=== PATIENT | female | born 1985 | race Two or more races ===

== ENCOUNTER 2024-06-06 14:31 | Emergency (ER) | payer MEDICAID, SELFPAY ==
[2024-06-06 14:33] VITALS: BMI 23.0
[2024-06-06 15:04] VITALS: BP 135/85; PULSE 71; RESP 16; TEMP 36.9; O2SAT 99
--- NOTE | 2024-06-06 15:08 | XR_ITS ---
Examination: CT brain head without contrast. 2-D sagittal coronal reconstructions Date and time of exam:June 06, 2024 1608 hours INDICATIONS: Onset headaches dizziness today CTDI: vol (mGy):47.1 DLP: (mGycm):897 Technique: Multiple CT axial sections of the brain have been obtained, 5 mm slice thickness. Contrast has not been administered. 2-D sagittal, coronal reconstructions have been obtained Low dose protocols were performed. One or more of the following dose reduction techniques were used; automated exposure control, adjustment of the mA and/or KV according to patient size, use of iterative reconstruction technique. Findings: No significant ventricular enlargement. Intra-axial or extra-axial hemorrhage density is not seen. No mass effect or midline shift Basal cisterns are not remarkable. Fourth ventricle is midline. Cranial vault intact. Impression: Negative for acute hemorrhage, mass effect or midline shift Advise clinical correlation follow-up accordingly
--- NOTE | 2024-06-06 15:09 | EDNOTE_ITS ---
<Statement entered by Sudha Nixon MD - 06/07/24 07:25> As co-signing physician, I was present and available for consult prn. I concur with the plan and care as documented by the midlevel provider. ED Headache RME/HPI General Chief Complaint: Headache Stated Complaint: FACIAL PAIN/HEADACHE FOR 3 DAYS Time Seen by Provider: 06/06/24 15:08 Source: patient Arrival date/time: 06/06/24 14:31 38-year-old female with no known medical history presents to the emergency room with a chief complaint of a headache x 3 days. Mode of arrival: ambulatory Limitations: no limitations Related Data Home Medications ?Medication ?Instructions ?Recorded ?Confirmed escitalopram oxalate 10 mg tablet 10 mg PO QDAY 12/14/18 topiramate 50 mg capsule,extended 50 mg PO QDAY 12/14/18 release 24 hr trazodone 150 mg tablet 150 mg PO QDAY 10/04/1811/24 Previous Rx's ?Medication ?Instructions ?Recorded lansoprazole 30 mg capsule,delayed 30 mg PO QDAY #14 c aps 12/14/18 release (Prevacid) cephalexin 500 mg tablet 500 mg PO TID #21 tabs 04/15 clindamycin HCl 300 mg capsule 300 mg PO TID 7 days #2 1 caps 06/06/24 Allergies Allergy/AdvReac Type Severity Reaction Status Date / Time No Known Allergies Allergy Verified 06/06/24 14:32 Review of Systems Review of Systems Systems Reviewed: All systems reviewed, normal except as documented Constitutional Constitutional: Reports system reviewed and no additional complaints, except as documented, Denies fatigue, Denies fever(s), Reports headache(s) and Denies weakness Eyes Eyes: Reports system reviewed and no additional complaints, except as documented, Denies blurry vision and Denies change in vision ENT Ears, Nose, Mouth, and Throat: Reports system reviewed and no additional complaints, except as documented, Reports dental pain, Denies otalgia, Reports headache(s), Denies nasal congestion, Denies throat swelling and Denies vertigo Cardiovascular Cardiovascular: Reports system reviewed and no additional complaints, except as documented, Denies chest pain, Denies dyspnea and Denies dyspnea on exertion Respiratory Respiratory: Reports system reviewed and no additional complaints, except as documented, Denies chest congestion, Denies cough, Denies dyspnea, Denies dyspnea on exertion and Denies wheezing Gastrointestinal Gastrointestinal: Reports system reviewed and no additional complaints, except as documented, Denies abdominal pain, Denies cramping, Denies nausea and Denies vomiting Genitourinary Genitourinary: Reports system reviewed and no additional complaints, except as documented Musculoskeletal Musculoskeletal: Reports system reviewed and no additional complaints, except as documented and Denies back pain Integumentary/Breasts Skin/Breast: Reports system reviewed and no additional complaints, except as documented and Denies wounds Neurologic Neurologic: Reports system reviewed and no additional complaints, except as documented, Denies confusion, Reports headache(s), Denies lack of coordination, Denies vertigo and Denies weakness Psychiatric Psychiatric: Reports system reviewed and no additional complaints, except as documented, Denies anxiety, Denies confusion, Denies depression, Denies paranoia, Denies suicidal ideation and Denies tactile hallucinations Endocrine Endocrine: Reports system reviewed and no additional complaints, except as documented and Denies fatigue Hematologic/Lymphatic Hematologic/Lymphatic: Reports system reviewed and no additional complaints, except as documented and Denies lymphadenopathy Allergic/Immunologic Allergic/Immunologic: Reports system reviewed and no additional complaints, except as documented, Denies throat swelling, Denies urticaria and Denies wheezing Past Medical History Past Medical History CARDIAC: Negative Congestive Heart Failure RESPIRATORY: Negative Chronic Obstructive Pulmonary Disease (COPD) GENITOURINARY: Negative Renal Disease ENDOCRINE: Negative Diabetes Mellitus Type 1 or Diabetes Mellitus Type 2 Social History SMOKING STATUS: Never smoker ED Exam General Limitations: Present no limitations General appearance: Present alert and in no apparent distress Head Head exam: Present atraumatic Eye Eye exam: Present normal appearance, PERRL and EOMI ENT ENT exam: Present normal exam, normal oropharynx and mucous membranes moist Expanded ENT Exam Teeth exam: Present dental caries and dental tenderness #; Absent fractured tooth # or gingival swelling Teeth numbered: 2 1. Dental Tenderness Throat exam: Present normal inspection Neck Neck exam: Present normal inspection, full ROM and trachea midline Chest Chest inspection: Present normal inspection and symmetric chest wall rise Respiratory Respiratory exam: Present normal lung sounds bilaterally Cardiovascular Cardiovascular exam: Present regular rate, normal rhythm and normal heart sounds Abdominal Exam Abdominal exam: Present soft and normal bowel sounds Extremities Exam Extremities exam: Present normal inspection and full ROM Back Exam Back exam: Present normal inspection and full ROM Neurological Exam Neurological exam: Present alert, oriented X3 and CN II-XII intact Psychiatric Psychiatric exam: Present normal affect and normal mood Skin Skin exam: Present warm, dry, intact and normal color Course Quality Measures none Orders Category Date Time Status CT head/brain wo con Stat Exams 06/06/24 15:08 Completed Ketorolac Inj [Toradol Inj] Med 06/06/24 16:45 Discontinued 30 mg IM X1 ONE Vital Signs Vital signs: Vital Signs Temperature 98.4 F 06/06/24 15:04 Pulse Rate 71 06/06/24 15:04 Respiratory Rate 16 06/06/24 15:04 Blood Pressure 135/85 H 06/06/24 15:04 Pulse Oximetry (%) 99 06/06/24 15:04 Oxygen Delivery Method Room Air 06/06/24 15:04 O2 saturation 99% within normal limits Headache MDM Narrative MDM Narrative:: 38-year-old female with no known medical history presents to the emergency room with a chief complaint of a headache x 3 days. Patient is hemodynamically stable and in no apparent distress Patient states she has a 10 out of 10 headache that has been going on for 3 days but progressively gotten worse today. She denies a headache to the right side of her head and states that it is throbbing and is not relieved with medication. Patient is also complaining of right sided upper dental tenderness. Patient states she has been to her dentist multiple times as she believes this is the root of her headache. CT of the head and brain was completed and was negative for any acute hemorrhage mass effect or midline shift. Patient was discharged and educated to follow-up with primary care provider and return to the emergency room for any evidence of worsening signs or symptoms. Patient data External records reviewed:: [facility] previous records Clinical information provided by:: patient Social determinants that could affect healthcare access:: none Patient has the following chronic illnesses:: No chronic illness How is presenting disease/condition affected by chronic disease/condition?: no chronic disease Evaluation data The following diagnostics were reviewed and interpreted by me:: lab results and radiology exam(s) Lab and/or radiology exams considered but not ordered:: Labs and radiology exams considered and ordered Interpretation Summary: N/A Medications / Prescriptions Medications or Prescriptions considered but not ordered:: Medication given Medication administrations:: Medication Administration History Discontinued Medications Ketorolac Tromethamine (Ketorolac Inj 60 Mg/2 Ml Vial) 30 mg IM X1 ONE Stop: 06/06/24 16:46 Last Admin: 06/06/24 17:18 Dose: 30 mg Documented By: Medication given Consultations Consultation(s) initiated? (list below): No Diagnosis Differential diagnosis headache: migraine, tension headache, subarachnoid hemorrhage, headache and other (Dental pain) Most likely diagnosis given after review of the tests above:: Dental pain Admission Indicated Admission indicated?: not indicated Admission Request Was there a request for admission?: No Disposition Plan Disposition Plan: Discharge Discharge Attestation Discharge Attestation: The patient and all family members were given an opportunity to ask questions and understood the discharge instructions. Discharge instructions specifically effects, indications for sooner follow up or return to the emergency department, and the expected course of current diagnosis. Patient condition: Stable Discharge Plan Plan Patient Disposition: HOME (Self Care) Disposition Comment: Stable Prescriptions/Referrals Prescriptions/Med Rec: New clindamycin HCl 300 mg capsule 300 mg PO TID 7 Days Qty: 21 0RF No Action trazodone 150 mg Tablet 150 mg PO QDAY escitalopram oxalate 10 mg Tablet 10 mg PO QDAY topiramate 50 mg Capsule,Extended Release 24hr 50 mg PO QDAY lansoprazole [Prevacid] 30 mg capsule,delayed release(DR/EC) 30 mg PO QDAY Qty: 14 0RF cephalexin 500 mg tablet 500 mg PO TID Qty: 21 0RF Referrals: No Primary/Family,Physician [Primary Care Provider] - In 1 week Problem List Clinical Impression: Headache, Pain, dental Patient/Caregiver Discharge Instructions Education Materials: Self-Care for Headaches, ED Dental Pain Additional Instructions: Por favor, consulte con jane m?dico de cabecera en las pr?ximas 24 a 48 horas. Los antibi?ticos se env?an a jane farmacia, rec?jalos y t?melos seg?n lo indicado. Si hay evidencia de empeoramiento de los signos o s?ntomas, regrese a la carolann de emergencias de inmediato. Print Language: Irish Stand Alone Forms: Ramona Award Info., Patient Portal Info Letter PA/ETHNOGRAPHER Supervising Physician PA/ETHNOGRAPHER Supervising Physician: Dr. NIXON
[2024-06-06] MEDS: KETOROLAC INJ 60 MG/2 ML VIAL 30 MG IM (17:18)
== END 2024-06-06 18:19 | disposition home or self-care (01) ==
PROVIDERS: Emergency Provider Emergency Medicine
DX: R51.9 Headache, unspecified (principal); K08.89 Other specified disorders of teeth and supporting structures
CPT/HCPCS: 70450; 96372; 99284; J1885

== ENCOUNTER 2024-11-04 05:39 | Emergency (ER) | payer MEDICAID, SELFPAY ==
[2024-11-04 05:46] VITALS: BP 130/73; PULSE 66; RESP 16; TEMP 36.7; O2SAT 100
--- NOTE | 2024-11-04 06:33 | PD.EDNECK ---
ED Neck Injury Pain RME/HPI General Chief Complaint: Neck Pain/Injury Stated Complaint: NECK PAIN Time Seen by Provider: 11/04/24 06:14 Arrival date/time: 11/04/24 05:39 This is a 38-year-old female that comes into the emergency room with complaints of anxiety neck pain with neck tension. Patient states that over the past few days she has been having trouble sleeping. Patient states that she has had a lot of anxiety. Patient reports she is having a lot of stuff going on at home. She has been taking ibuprofen at home for the neck tension. Over the last couple weeks she states that she has been having panic attacks at home. Patient has not seen her doctor for this reason. Patient also reports some discomfort when urinating. Related Data Home Medications ?Medication ?Instructions ?Recorded ?Confirmed escitalopram oxalate 10 mg tablet 10 mg PO QDAY 10/04/18 12/14/18 topiramate 50 mg capsule,extended 50 mg PO QDAY 10/04/18 12/14/18 release 24 hr trazodone 150 mg tablet 150 mg PO QDAY 10/04/18 12/14/18 Previous Rx's ?Medication ?Instructions ?Recorded lansoprazole 30 mg capsule,delayed 30 mg PO QDAY #14 caps 12/14/18 release (Prevacid) cephalexin 500 mg tablet 500 mg PO TID #21 tabs 04/15/22 ibuprofen 800 mg tablet 800 mg PO Q6H PRN pain #20 tabs 11/04/24 Allergies Allergy/AdvReac Type Severity Reaction Status Date / Time No Known Allergies Allergy Verified 11/04/24 05:39 Review of Systems Review of Systems Systems Reviewed: All systems reviewed, normal except as documented Past Medical History Past Medical History CARDIAC: Negative Congestive Heart Failure RESPIRATORY: Negative Chronic Obstructive Pulmonary Disease (COPD) GENITOURINARY: Negative Renal Disease ENDOCRINE: Negative Diabetes Mellitus Type 1 or Diabetes Mellitus Type 2 Social History SMOKING STATUS: Never smoker ED Exam Narrative Physical exam: VITAL SIGNS: Reviewed. GENERAL APPEARANCE: Alert and interactive, follows commands, no acute distress, HEAD AND FACE: Non-traumatic. ENT: PERRL, conjuctiva pink and clear, eyelid no trauma, Mucous membrane moist. NECK: Supple, nontender, no nuchal rigidity. CHEST: No tenderness, no crepitus, no paradoxical movement, no retractions. LUNGS: Clear, well ventilated, symmetric, no rales, no wheezing, no rhonchi, no stridor, good breath sounds bilaterally. HEART: Regular rate, regular rhythm, no murmur, no gallops. ABDOMEN: Soft, nondistended, no guarding, nontender NEUROLOGICAL: Gross motor function intact sensory function intact, Appropriate for age. MUSCULOSKELETAL: low back nontender, full range of motion. EXTREMITIES: No redness no swelling no skin breakdown on bilateral foot and leg. Distal neurovascular status intact bilateral foot SKIN: Color pink, dry, no rash, no lacerations, no abrasions, no contusions. Course Quality Measures none Orders Category Date Time Status HCG Qualitative,Urine Stat Lab 11/04/24 06:48 Completed Urinalysis, C/S if Indicated Stat Lab 11/04/24 06:48 Completed Acetaminophen Tab [Tylenol ES Tab] Med 11/04/24 08:55 Discontinued 1,000 mg PO X1 ONE CYCLObenzaPRINE [Flexeril] Med 11/04/24 08:55 Discontinued 10 mg PO X1 ONE Ibuprofen Tab [Motrin Tab] Med 11/04/24 08:55 Discontinued 800 mg PO X1 ONE Ondansetron Odt [Zofran Odt] Med 11/04/24 08:55 Discontinued 4 mg PO X1 ONE cefTRIAXone [Rocephin] 1,000 mg Med 11/04/24 08:55 Discontinued Lidocaine 1% 20 ml [Xylocaine 1% 20 ML] 2.1 ml IM X1 hydrOXYzine HCL [Atarax] Med 11/04/24 09:00 Discontinued 25 mg PO X1 ONE Vital Signs Vital signs: Vital Signs Temperature 98.1 F 11/04/24 05:46 Pulse Rate 66 11/04/24 05:46 Respiratory Rate 16 11/04/24 05:46 Blood Pressure 130/73 11/04/24 05:46 Pulse Oximetry (%) 100 11/04/24 05:46 Oxygen Delivery Method Room Air 11/04/24 05:46 Neck Pain MDM Narrative MDM Narrative:: Spoke to patient at length. Patient states she has a lot of stuff going on at home. Patient has increased stress and has been having panic attacks at home. Explained to patient that she needs to see her primary provider this continues to happen and she may need to be put on medications for anxiety/depression. I will treat patient with a muscle relaxer today. I going to send patient home with antibiotics and give her a dose of Rocephin here. Patient told to follow-up with urine culture with primary provider. Patient verbalized understanding. Patient data External records reviewed:: [facility] previous records Clinical information provided by:: patient Social determinants that could affect healthcare access:: none Patient has the following chronic illnesses:: none How is presenting disease/condition affected by chronic disease/condition?: no chronic disease Evaluation data The following diagnostics were reviewed and interpreted by me:: other (specify) (none) Lab and/or radiology exams considered but not ordered:: none Interpretation Summary: none Medications / Prescriptions Medications or Prescriptions considered but not ordered:: none Medication administrations:: Medication Administration History Discontinued Medications Acetaminophen (Acetaminophen 500 Mg Tablet) 1,000 mg PO X1 ONE Stop: 11/04/24 08:56 Last Admin: 11/04/24 09:31 Dose: 1,000 mg Documented By: Ceftriaxone Sodium 1,000 mg/ (Lidocaine HCl 2.1 ml) 0 mg IM X1 ONE Stop: 11/04/24 08:56 Last Admin: 11/04/24 09:34 Dose: 1,000 mg Documented By: Cyclobenzaprine HCl (Cyclobenzaprine 5 Mg Tablet) 10 mg PO X1 ONE Stop: 11/04/24 08:56 Last Admin: 11/04/24 09:44 Dose: Not Given Documented By: Non-Admin Reason: Cancelled by Provider Hydroxyzine HCl (Hydroxyzine Hcl 25 Mg Tablet) 25 mg PO X1 ONE Stop: 11/04/24 09:01 Last Admin: 11/04/24 09:33 Dose: 25 mg Documented By: Ibuprofen (Ibuprofen Tab 400 Mg Tablet) 800 mg PO X1 ONE Stop: 11/04/24 08:56 Last Admin: 11/04/24 09:32 Dose: 800 mg Documented By: Ondansetron HCl (Ondansetron Odt 4 Mg Tabrap) 4 mg PO X1 ONE; Protocol Stop: 11/04/24 08:56 Last Admin: 11/04/24 09:33 Dose: 4 mg Documented By: see mar Consultations Consultation(s) initiated? (list below): No Diagnosis Neck Differential Diagnosis: cervical radiculopathy, strain of neck muscle and other (anxiety, uti) Most likely diagnosis given after review of the tests above:: uti Admission Indicated Admission indicated?: not indicated Admission Request Was there a request for admission?: No Disposition Plan Disposition Plan: Discharge Discharge Attestation Discharge Attestation: The patient and all family members were given an opportunity to ask questions and understood the discharge instructions. Discharge instructions specifically effects, indications for sooner follow up or return to the emergency department, and the expected course of current diagnosis. Patient condition: Stable Discharge Plan Plan Patient Disposition: HOME (Self Care) Patient condition on transfer: Stable Prescriptions/Referrals Prescriptions/Med Rec: New ibuprofen 800 mg tablet 800 mg PO Q6H PRN (Reason: pain) Qty: 20 0RF No Action trazodone 150 mg Tablet 150 mg PO QDAY escitalopram oxalate 10 mg Tablet 10 mg PO QDAY topiramate 50 mg Capsule,Extended Release 24hr 50 mg PO QDAY lansoprazole [Prevacid] 30 mg capsule,delayed release(DR/EC) 30 mg PO QDAY Qty: 14 0RF cephalexin 500 mg tablet 500 mg PO TID Qty: 21 0RF Referrals: Blaire Claros PA-C [Primary Care Provider] - In 1 week Problem List Clinical Impression: Urinary tract infection, Anxiety Patient/Caregiver Discharge Instructions Discharge Activity: activity as tolerated Education Materials: ED Anxiety Reaction, ED CYSTITIS Female Adult Additional Instructions: Gem un rajendra con jane medico de cabecera en las proximas 24-48 horas. Regrese a la carolann de emergencias si hay evidencia de que los signos o sintomas empeoran. Print Language: [place] Stand Alone Forms: Ramona Award Info., Patient Portal Info Letter BILL Supervising Physician BILL Supervising Physician: zulema
[2024-11-04 07:03] LABS: Collection Type, Urine Voided; RBC,Urine 0 /hpf (0-3)
[2024-11-04 07:20] LABS: Bacteria,Urine Rare; Bilirubin,Urine Negative (Negative); Blood,Urine Negative (Negative); Clarity,Urine Turbid (Clear/Hazy); Color,Urine Yellow (Lt Yel-Yel); Culture Indicated,Urine Contaminated; Glucose, Urine Negative (Negative); Ketones,Urine Negative (Negative); Leukocyte Esterase,Urine Positive (Negative); Nitrite,Urine Positive (Negative); PH,Urine 6.0 (5.0-7.0); Protein,Urine 1+ (Neg - Trace); Specific Gravity,Urine 1.036 (1.001-1.035); Squamous Epithelial Cell,Urine 23 /hpf (0-5); Urobilinogen,Urine Negative mg/dL (0.0-1.0); WBC,Urine 23 /hpf (0-5)
[2024-11-04 07:30] LABS: HCG Qualitative,Urine Negative
[2024-11-04 08:42] VITALS: BP 104/69; PULSE 67; RESP 18; TEMP 36.7; O2SAT 98
[2024-11-04] MEDS: ACETAMINOPHEN 500 MG TABLET 1000 MG PO (09:31)
[2024-11-04] MEDS: IBUPROFEN TAB 400 MG TABLET 800 MG PO (09:32)
[2024-11-04] MEDS: ONDANSETRON ODT 4 MG TABRAP PO (09:33)
[2024-11-04] MEDS: cefTRIAXone 1,000 MG, LIDOCAINE 1% 20 ML 2.1 ML IM (09:34)
== END 2024-11-04 10:06 | disposition home or self-care (01) ==
PROVIDERS: Nurse Practitioner Family; Emergency Provider Emergency Medicine; PCP Physician Assistant Medical
DX: N39.0 Urinary tract infection, site not specified (principal); F41.9 Anxiety disorder, unspecified
CPT/HCPCS: 81001; 81025; 96372; 99283; J0696; J3490; Q0162; A9270